=== PATIENT | male | born 1960 | race African-American/Black ===

== ENCOUNTER → 2019-10-01 | Outpatient (CLI) | payer OTHER ==
[~2019-10-01] VITALS: Ht 175.3 cm; Wt 112.5 kg
[~2019-10-01] MED LIST: ASPIRIN325 PO; BISOPROLOL FUMAR5 MG PO; CHLORTHALIDONE25 MG PO; CORGARD20 MG PO; COZAAR 50 MG TA50 M1 PO; ELIQUIS5 MG PO; FLECAINIDE ACE100 MG PO; KEPPRA XR500 MG PO; LOVASTAT10 PO; LOVAZA1000 MG PO; MEGARED OMEGA-1 EAC1 PO; NORCO 5-325 TA1 EACH PO; NORVASC5 M1 PO; ZOCOR20 MG PO; ZYLOPRIM300 MG PO
--- NOTE | 2019-10-03 11:45 | P ---
[facility] [place] [address] PROCEDURE REPORT Name: DANISH DUGAN Room #: REG [facility].#: [id number] Admission: 10/01/19 Attend Phys: Kapil Tran MD Discharge: Date of : 64 Report #: [id number] THIS REPORT FOR: cc: Merry Mccain MD,Merry Tran,Kapil Evangelista MD ~ CC: Kapil Mccain MD DATE OF SERVICE: 10/01/2019 BRIEF HISTORY: The patient is a 58-year-old male for high risk screening colonoscopy. His father had colon cancer. His last colonoscopy was in 1994. He is asymptomatic. PREOPERATIVE DIAGNOSIS: High risk screening colonoscopy. POSTOPERATIVE DIAGNOSES: 1. Diminutive cecal polyp. 2. Pandiverticulosis coli, greater in left colon than right colon. MEDICATIONS: Deep sedation with propofol per anesthesia. SPECIMEN: Cecal polyp. ESTIMATED BLOOD LOSS: 3 mL. PROCEDURE: Colonoscopy to cecum with biopsy. FINDINGS: Prior to propofol sedation, procedure of colonoscopy discussed with the patient and family as well as potential risks and its complications. He indicates he understands and desires to proceed. DESCRIPTION OF PROCEDURE: With the patient in left lateral decubitus position, digital examination was completed, which revealed no abnormalities. Subsequently, the Olympus video colonoscope was introduced in the rectum, advanced under direct vision to the cecum. Done with minimal difficulty. Cecum was identified by the appendiceal orifice. Multiple attempts were made to cross the ileocecal valve without success due to looping of the scope. At that point, the scope was slowly withdrawn and careful circumferential views were obtained. There were some limitations of the prep. I was able to wash and irrigate and suction much of this material, but in some areas in particular proximal colon not all the debris could be removed. So, a small lesion could have been overlooked. Within the cecum, a diminutive polyp was seen and removed with biopsy forceps. Scope was withdrawn through the remainder of the colon. He was [facility] [address] [place] [address] PROCEDURE REPORT Name: DANISH DUGAN Room #: REG [facility].#: [id number] Admission: 10/01/19 Attend Phys: Kapil Tran MD Discharge: Date of : 64 Report #: [id number] noted to have scattered diverticula throughout the colon including the cecum. The diverticula were small to moderate in size. There was no luminal narrowing identified. The diverticular disease, more so on the left colon than right colon. As we withdrew the scope, the remainder of the exam was otherwise unremarkable. The mucosa within normal limits, normal vascular pattern, normal light reflex. No additional polyps were seen. The scope was withdrawn in the rectum. No abnormalities were seen. Upon retroflexion, no abnormalities were seen. Scope was withdrawn. The patient tolerated the procedure well. CONDITION OF THE PATIENT UPON DISCHARGE: Following procedure, the patient drowsy, aroused, conversant and will be discharged home when fully ambulatory. INSTRUCTIONS TO THE PATIENT AND FAMILY AT THE TIME OF DISCHARGE: Suggest high fiber diet due to diverticular disease. We will follow up on the path of the polyp. However, given his family history as well as the fact that there were some prep limitations, I would suggest he return in 3 years for followup colonoscopy. He will otherwise return to the care of Dr. Merry Mccain. Last colonoscopy was in 1994. Withdrawal time from the cecum was 10 minutes and 41 seconds. <ELECTRONICALLY SIGNED> By: Kapil Tran MD 10/03/19 1145 [id number] [id number] Kaipl Tran MD /nt
--- NOTE | 2019-10-05 10:09 | PATH ---
[facility] [address] [place] [address] PATHOLOGY RPT PROCEDURE Name: DANISH DUGAN Room #: REG CLI M.R.#: [id number] Admission: 10/01/19 Date of : 64 Discharge: Report #: [id number] Path Case #: [id number] [facility] Accession Number: [id number] . 01 Material submitted: . cecum - POLYP AT CECUM . 01 Clinical history: . Screening, colon polyp, diverticulosis. . 02 Diagnosis: Polyp, at cecum, endoscopic biopsy: - Inflammatory polyp. - Negative for dysplasia. (IUV/db; 10/02/2019) LBQ 10/02/2019 1310 Local . 02 Electronically signed: . Tarsha Dumont MD, Pathologist NPI- [id number] . 01 Gross description: . Received in formalin labeled "Danish Dugan, polyp at cecum" is a 0.9 x 0.2 x 0.1 cm fragment of burns-brown soft tissue. The specimen is submitted entirely in A1. ([facility]; 10/01/2019) [facility] 10/01/2019 1812 Local . 02 Pathologist provided ICD-10: K63.5 . 02 CPT . 929446 Specimen Comment: A courtesy copy of this report has been sent to [phone], [phone] Specimen Comment: [phone] Specimen Comment: Report sent to / DR GILL Performed at: [address], [place] [id number] MD Rivrea Matute MD Phone: [phone] Performed at: [address] [id number] MD Tarsha Dumont MD Phone: [phone]
== END | disposition home or self-care (01) ==
LOC: GI 07:45
DX: Z12.11 Encounter for screening for malignant neoplasm of colon (principal); Z80.0 Family history of malignant neoplasm of digestive organs; K51.40 Inflammatory polyps of colon without complications; K57.30 Diverticulosis of large intestine without perforation or abscess without bleeding; I10 Essential (primary) hypertension; E78.00 Pure hypercholesterolemia, unspecified; M10.9 Gout, unspecified; Z98.890 Other specified postprocedural states; Z79.899 Other long term (current) drug therapy; Z86.73 Personal history of transient ischemic attack (TIA), and cerebral infarction without residual deficits; Z95.0 Presence of cardiac pacemaker; Z90.49 Acquired absence of other specified parts of digestive tract; Z88.8 Allergy status to other drugs, medicaments and biological substances; Z79.01 Long term (current) use of anticoagulants
CPT/HCPCS: 62110; 62900